=== PATIENT | male | born 1990 | race Caucasian/White ===

== ENCOUNTER 2017-07-20 15:41 | Emergency (ER) | payer SELFPAY ==
[~2017-07-20] VITALS: Ht 180.3 cm; Wt 78.0 kg
[~2017-07-20 15:41] MED LIST: VIST25CA PO
[2017-07-20 15:42] VITALS: BP 134/72; PULSE 78; RESP 14; TEMP 98.6; O2SAT 98
--- NOTE | 2017-07-20 16:53 | PD ---
HPI Chief Complaint: Pain: Acute or Chronic Time Seen by Provider: 16:26 Travel History International Travel<30 days: No Contact w/Intl Traveler<30days: No Traveled to known affect area: No History of Present Illness HPI Patient is a 27-year-old male who comes in complaining of itching and swelling around both eyes and tightness around his mouth. He says this is been going on for 4 months. He says he has occasional discharge from his eyes. He says he wants to know what is causing his symptoms. He provides very little other history. Severity is mild. PFSH Past Medical History Anxiety: Yes (Panic attacks) Diminished Hearing: No Psychiatric: Yes (PSA) Social History Alcohol Use: Yes (DAILY) Tobacco Use: Yes (1/2 PPD) Substance Use: Yes (AMPHETAMINES, MARIJUANA) Allergies-Medications (Allergen,Severity, Reaction): Coded Allergies: No Known Allergies (Verified Adverse Reaction, Unknown, 07/20/17) Reported Meds & Prescriptions Reported Meds & Active Scripts Active Vistaril (Hydroxyzine Pamoate) 25 Mg Cap 25 Mg PO Q12HR PRN FOR ITCHING Review of Systems General / Constitutional: No: Fever, Chills Eyes: No: Blurred Vision HENT: No: Headaches, Lightheadedness Cardiovascular: No: Chest Pain or Discomfort Gastrointestinal: No: Nausea, Vomiting Musculoskeletal: No: Myalgias Skin: Positive Itching, No Rash Neurologic: No: Weakness, Dizziness Physical Exam Narrative GENERAL: Awake and alert, no acute distress. SKIN: Focused skin assessment warm/dry. No wounds, no signs of infection. Face is sunburned. HEAD: Atraumatic. Normocephalic. EYES: Pupils equal and round. No scleral icterus. No injection or drainage. Extraocular movements intact. ENT: Mucous membranes pink and moist. CARDIOVASCULAR: Regular rate and rhythm. No murmur appreciated. RESPIRATORY: No accessory muscle use. Clear to auscultation. Breath sounds equal bilaterally. MUSCULOSKELETAL: No obvious deformities. No clubbing. No cyanosis. No edema. NEUROLOGICAL: Awake and alert. No obvious cranial nerve deficits. Motor grossly within normal limits. Normal speech. PSYCHIATRIC: Appropriate mood and affect; insight and judgment normal. Data Data Last Documented VS Vital Signs Date Time Temp Pulse Resp B/P (MAP) Pulse Ox O2 Delivery O2 Flow Rate FiO2 07/20/17 15:42 98.6 78 14 134/72 (55) 98 MDM Medical Decision Making Medical Screen Exam Complete: Yes Emergency Medical Condition: Yes Medical Record Reviewed: Yes Differential Diagnosis Allergic reaction versus sunburn versus cellulitis versus conjunctivitis Narrative Course Patient is a 27-year-old male who comes in complaining of red itchy eyes and tightness around his mouth. Exam shows sunburn on his face, no other acute abnormalities. I discussed with the patient that I believe his symptoms are likely due to environmental allergies and a sunburn he has. Patient became argumentative and said "you think a white sourer with think that." When asked what he feels that he needs, he could not answer that. I offered him Benadryl. He said originally that he had not taken anything for symptoms, but then said that he had been taking Benadryl. He is offered a prescription for eyedrops, but then decides that he has already been taking eyedrops though he cannot name these eyedrops. Again, I asked what he was seeking by coming to the emergency department and he could not answer. He then started to tell me about symptoms he had supposedly had for 5 years. I advised he should follow-up with a primary care doctor. Patient offered a Benadryl here, however he got up and walked out. Diagnosis Primary Impression: Seasonal allergies Qualified Codes: J30.2 - Other seasonal allergic rhinitis Disposition: 07 AGAINST MEDICAL ADVICE Collette Alarcon MD Jul 20, 2017 16:53
== END 2017-07-20 17:21 | disposition left against medical advice (07) ==
LOC: NEPD 15:41
DX: J30.2 Other seasonal allergic rhinitis (principal); F17.200 Nicotine dependence, unspecified, uncomplicated; Z86.59 Personal history of other mental and behavioral disorders; Z53.29 Procedure and treatment not carried out because of patient's decision for other reasons
CPT/HCPCS: 99281

== ENCOUNTER 2017-08-06 22:15 | Emergency (ER) | payer SELFPAY ==
[~2017-08-06] VITALS: Ht 180.3 cm; Wt 80.0 kg
[2017-08-06 22:25] VITALS: BP 143/96; PULSE 84; RESP 15; TEMP 98.3; O2SAT 98
[2017-08-06] MEDS ORDERED: SODIUM CHLORIDE 0.9% FLUSH 10 ML FLUSH IVF PRN (22:45)
[2017-08-06] MEDS ORDERED: SODIUM CHLOR 0.9% 1000 ML INJ 1,000 ML IV ONE ×2 (22:45→23:00)
--- NOTE | 2017-08-06 22:58 | RADRPT ---
EXAM DATE/TIME: 08/06/2017 22:44 [facility] COMPARISON: CHEST SINGLE AP, July 06, 2015, 2:50. INDICATIONS : Psych eval, short of breath. MEDICAL HISTORY : None. SURGICAL HISTORY : None. ENCOUNTER: Initial ACUITY: 1 day PAIN SCORE: 0/10 LOCATION: Bilateral chest FINDINGS: A single view of the chest demonstrates the lungs to be symmetrically aerated without evidence of mas s, infiltrate or effusion. The cardiomediastinal contours are unremarkable. Osseous structures are intact. The left costophrenic angle was excluded from the image. CONCLUSION: No acute disease. Adria Read MD on August 06, 2017 at 22:56 Board Certified Radiologist. This report was verified electronically.
[2017-08-06] MEDS ORDERED: THIAMINE INJ 100 MG in SODIUM CHLORIDE 0.9% INJ 100 ML IV ONE (23:00)
[2017-08-06 23:21] LABS: AUTOMATED NEUTROPHIL # 4.2 TH/MM3 (1.8-7.7); BASOPHIL # 0.2 TH/MM3 (0-0.2); BASOPHIL % 2.2 % (0.0-2.0); EOSINOPHIL # 0.4 TH/MM3 (0-0.4); EOSINOPHIL % 4.7 % (0.0-4.0); HEMATOCRIT 49.9 % (39.0-51.0); HEMOGLOBIN 17.2 GM/DL (13.0-17.0); LYMPH % 33.1 % (9.0-44.0); LYMPHOCYTE # 2.7 TH/MM3 (1.0-4.8); MEAN CELL VOLUME 91.7 FL (80.0-100.0); MEAN CORPUSCULAR HEMOGLOBIN 31.5 PG (27.0-34.0); MEAN CORPUSCULAR HGB CONC 34.4 % (32.0-36.0); MEAN PLATELET VOLUME 8.1 FL (7.0-11.0); MONO % 8.7 % (0.0-8.0); MONOCYTE # 0.7 TH/MM3 (0-0.9); NEUT % 51.3 % (16.0-70.0); PLATELET COUNT 333 TH/MM3 (150-450); RED BLOOD COUNT 5.44 MIL/MM3 (4.50-5.90); RED CELL DISTRIBUTION WIDTH 14.2 % (11.6-17.2); WHITE BLOOD COUNT 8.2 TH/MM3 (4.0-11.0)
[2017-08-06 23:27] LABS: ALKALINE PHOSPHATASE 112 U/L (45-117); ALT (GPT) 65 U/L (12-78); AST (GOT) 76 U/L (15-37); BICARBONATE 27.7 MEQ/L (21.0-32.0); BLOOD UREA NITROGEN 7 MG/DL (7-18); CALCIUM 8.5 MG/DL (8.5-10.1); CHLORIDE 106 MEQ/L (98-107); CREATININE 1.01 MG/DL (0.60-1.30); GLOMERULAR FILTRATION RATE 90 ML/MIN (>89); GLUCOSE,RANDOM 97 MG/DL (74-106); MAGNESIUM 2.2 MG/DL (1.5-2.5); SODIUM (NA) 145 MEQ/L (136-145); TOTAL BILIRUBIN ADULT 0.9 MG/DL (0.2-1.0); TOTAL PROTEIN 7.8 GM/DL (6.4-8.2); TROPONIN I LESS THAN 0.02 NG/ML (0.02-0.05)
--- NOTE | 2017-08-06 23:29 | PD ---
HPI Chief Complaint: Chest Pain Time Seen by Provider: 22:33 Travel History International Travel<30 days: No Contact w/Intl Traveler<30days: No Traveled to known affect area: No History of Present Illness HPI Patient 27-year-old male presents emergency department confused, apparently called 911 because he was having chest pain and seizures, patient states he just been shaky all over and jittery, he endorses crack cocaine use to nursing today he tells me he did not use any today. He is significantly altered, he removed his IV from EMS he also removed in IV from my staff. Appears significantly dehydrated, he is uncooperative and belligerent. He cannot really provide me a past medical history, he is oriented to self and place only. [facility] Past Medical History Anxiety: Yes (Panic attacks) Diminished Hearing: No Psychiatric: Yes (PSA) Past Surgical History Surgical History: No Previous Surgery Social History Alcohol Use: Yes (DAILY) Tobacco Use: Yes (1/2 PPD) Substance Use: Yes (AMPHETAMINES, MARIJUANA) Allergies-Medications (Allergen,Severity, Reaction): Coded Allergies: No Known Allergies (Verified Adverse Reaction, Unknown, 08/06/17) Reported Meds & Prescriptions Reported Meds & Active Scripts Active Vistaril (Hydroxyzine Pamoate) 25 Mg Cap 25 Mg PO Q12HR PRN FOR ITCHING Review of Systems ROS Limitations: Altered Mental Status Physical Exam Narrative GENERAL: Well-developed well-nourished, smells heavily of alcohol, appears older than stated age peer SKIN: Focused skin assessment warm/dry. Hot dry and flushed, sunburnt. HEAD: Atraumatic. Normocephalic. EYES: Pupils equal and round. No scleral icterus. No injection or drainage. ENT: No nasal bleeding or discharge. Mucous membranes pink and moist. NECK: Trachea midline. No JVD. CARDIOVASCULAR: Regular rate and rhythm no murmurs gallops or rubs.. No murmur appreciated. RESPIRATORY: No accessory muscle use. Clear to auscultation. Breath sounds equal bilaterally. GASTROINTESTINAL: Abdomen soft, non-tender, nondistended. Hepatic and splenic margins not palpable. MUSCULOSKELETAL: No obvious deformities. No clubbing. No cyanosis. No edema. NEUROLOGICAL: Awake and alert. No obvious cranial nerve deficits. Motor grossly within normal limits. Normal speech. PSYCHIATRIC: Belligerent, altered mental status, later in the encounter began throwing things around in his room. Data Data Last Documented VS Vital Signs Date Time Temp Pulse Resp B/P (MAP) Pulse Ox O2 Delivery O2 Flow Rate FiO2 08/07/17 04:00 72 17 100 Room Air 08/06/17 22:25 98.3 143/96 (112) Orders Orders Electrocardiogram (08/06/17 22:33) Ckmb (Isoenzyme) Profile (08/06/17 22:33) Complete Blood Count With Diff (08/06/17 22:33) Comprehensive Metabolic Panel (08/06/17 22:33) Magnesium (Mg) (08/06/17 22:33) Troponin I (08/06/17 22:33) Chest, Single Ap (08/06/17 22:33) Ecg Monitoring (08/06/17 22:33) Iv Access Insert/Monitor (08/06/17 22:33) Oximetry (08/06/17 22:33) Oxygen Administration (08/06/17 22:33) Sodium Chloride 0.9% Flush (Ns Flush) (08/06/17 22:45) Sodium Chlor 0.9% 1000 Ml Inj (Ns 1000 M (08/06/17 22:45) Sodium Chlor 0.9% 1000 Ml Inj (Ns 1000 M (08/06/17 23:00) Thiamine Inj (Thiamine Inj) (08/06/17 23:00) CKMB (08/06/17 22:30) CKMB% (08/06/17 22:30) Lorazepam Inj (Ativan Inj) (08/06/17 23:45) Haloperidol Inj (Haldol Inj) (08/06/17 23:45) Diphenhydramine Inj (Benadryl Inj) (08/06/17 23:45) Restraints Violent (08/06/17 23:44) Drug Screen, Random Urine (08/06/17 23:57) Ct Brain W/O Iv Contrast(Rout) (08/07/17 ) Ct Cerv Spine W/O Contrast (08/07/17 ) Alcohol (Ethanol) (08/06/17 22:30) Labs Laboratory Tests Test 08/06/17 22:30 08/06/17 22:45 Blood Urea Nitrogen 7 MG/DL Creatinine 1.01 MG/DL Random Glucose 97 MG/DL Total Protein 7.8 GM/DL Albumin 4.0 GM/DL Calcium Level 8.5 MG/DL Magnesium Level 2.2 MG/DL Alkaline Phosphatase 112 U/L Aspartate Amino Transf (AST/SGOT) 76 U/L Alanine Aminotransferase (ALT/SGPT) 65 U/L Total Bilirubin 0.9 MG/DL Sodium Level 145 MEQ/L Potassium Level 3.8 MEQ/L Chloride Level 106 MEQ/L Carbon Dioxide Level 27.7 MEQ/L Anion Gap 11 MEQ/L Estimat Glomerular Filtration Rate 90 ML/MIN Total Creatine Kinase 593 U/L Creatine Kinase MB 4.8 NG/ML Creatine Kinase MB % 0.8 % Troponin I LESS THAN 0.02 NG/ML Ethyl Alcohol Level 284 MG/DL White Blood Count 8.2 TH/MM3 Red Blood Count 5.44 MIL/MM3 Hemoglobin 17.2 GM/DL Hematocrit 49.9 % Mean Corpuscular Volume 91.7 FL Mean Corpuscular Hemoglobin 31.5 PG Mean Corpuscular Hemoglobin Concent 34.4 % Red Cell Distribution Width 14.2 % Platelet Count 333 TH/MM3 Mean Platelet Volume 8.1 FL Neutrophils (%) (Auto) 51.3 % Lymphocytes (%) (Auto) 33.1 % Monocytes (%) (Auto) 8.7 % Eosinophils (%) (Auto) 4.7 % Basophils (%) (Auto) 2.2 % Neutrophils # (Auto) 4.2 TH/MM3 Lymphocytes # (Auto) 2.7 TH/MM3 Monocytes # (Auto) 0.7 TH/MM3 Eosinophils # (Auto) 0.4 TH/MM3 Basophils # (Auto) 0.2 TH/MM3 CBC Comment DIFF FINAL Differential Comment MDM Medical Decision Making Medical Screen Exam Complete: Yes Emergency Medical Condition: Yes Differential Diagnosis Alcohol intoxication, dehydration, rhabdomyolysis, substance abuse peer Narrative Course Patient room to the emergency department, given his cocaine use and his sun exposure as well as his altered mental status I have concerns for heatstroke versus heat syncope versus rhabdomyolysis and dehydration. The patient confused , he attempted to ambulate from the ER, when I discussed differential with him he is not able to participate with his decision-making process at this time, he is therefore too intoxicated to leave of his own accord. I placed him under [employer] act, he was escorted back to his room initially cooperative he was able to take p.o. however he then began throwing his urinal around the room his trash can overturned his bedside table. He had been warned by several staff members not to do these things and continued to act out and be disruptive, for that reason he was placed in four-point restraints and chemically sedated. He does have a small abrasion to the inner aspect of his lip which apparently occurred while he was being restrained. I lost sight of him for a moment while the curtain was drawn and cannot attest directly to the mechanism of injury. I have added a CT of his head and C-spine on. He has orders for 2 L normal saline , thiamine. His basic labs are actually reassuring. He is not febrile. Awaiting the CT head and C-spine alcohol level and urine drug screen. There will be allowed to sleep it off in the emergency department. Diagnosis Primary Impression: Alcohol intoxication Qualified Codes: F10.921 - Alcohol use, unspecified with intoxication delirium Additional Impressions: Dehydration Delirium Condition: Stable Bao Calvin MD August 06, 2017 23:29
[2017-08-06] MEDS ORDERED: HALOPERIDOL LACTATE 5 MG/ML AMP IM ONE (23:45)
[2017-08-06] MEDS ORDERED: diphenhydrAMINE HCL 50 MG/ML VIAL IV PUSH ONE (23:45)
[2017-08-06] MEDS ORDERED: LORazepam 2 MG/ML VIAL IV PUSH ONE (23:45)
[2017-08-07 04:00] VITALS: PULSE 72; RESP 17; O2SAT 100
--- NOTE | 2017-08-07 04:17 | RADRPT ---
EXAM DATE/TIME: 08/07/2017 03:41 [facility] COMPARISON: No previous studies available for comparison. INDICATIONS : Altered mental status. RADIATION DOSE: 56.35 CTDIvol (mGy) MEDICAL HISTORY : Non-responsive. SURGICAL HISTORY : Non-responsive. ENCOUNTER: Initial ACUITY: 1 day PAIN SCALE: Non-responsive LOCATION: cranial TECHNIQUE: Multiple contiguous axial images were obtained of the head. Using automated exposure control and adj ustment of the mA and/or kV according to patient size, radiation dose was kept as low as reasonably a chievable to obtain optimal diagnostic quality images. DICOM format image data is available electro nically for review and comparison. FINDINGS: CEREBRUM: The ventricles are normal for age. No evidence of midline shift, mass lesion, hemorrhage or acute in farction. No extra-axial fluid collections are seen. POSTERIOR FOSSA: The cerebellum and brainstem are intact. The 4th ventricle is midline. The cerebellopontine angle i s unremarkable. EXTRACRANIAL: The visualized portion of the orbits is intact. SKULL: The calvaria is intact. No evidence of skull fracture. CONCLUSION: Normal examination. Eran Funk MD on August 07, 2017 at 4:16 Board Certified Radiologist. This report was verified electronically.
--- NOTE | 2017-08-07 04:18 | RADRPT ---
EXAM DATE/TIME: 08/07/2017 03:41 [facility] COMPARISON: No previous studies available for comparison. INDICATIONS : Altered mental status. RADIATION DOSE: 18.46 CTDIvol (mGy) MEDICAL HISTORY : Non-responsive. SURGICAL HISTORY : Non-responsive. ENCOUNTER: Initial ACUITY: 1 day PAIN SCALE: Non-responsive LOCATION: neck TECHNIQUE: Volumetric scanning of the cervical spine was performed. Multiplanar reconstructions in the sagittal, coronal and oblique axial planes were performed. Using automated exposure control and adjustment o f the mA and/or kV according to patient size, radiation dose was kept as low as reasonably achievable to obtain optimal diagnostic quality images. DICOM format image data is available electronically f or review and comparison. FINDINGS: VERTEBRAE: Normal vertebral body height. ALIGNMENT: No evidence of subluxation. C2-C3: The bony spinal canal is normal in size. No evidence of disc bulge or herniation. The neural forami na are bilaterally patent. C3-C4: The bony spinal canal is normal in size. No evidence of disc bulge or herniation. The neural forami na are bilaterally patent. C4-C5: The bony spinal canal is normal in size. No evidence of disc bulge or herniation. The neural forami na are bilaterally patent. C5-C6: The bony spinal canal is normal in size. No evidence of disc bulge or herniation. The neural forami na are bilaterally patent. C6-C7: The bony spinal canal is normal in size. No evidence of disc bulge or herniation. The neural forami na are bilaterally patent. C7-T1: The bony spinal canal is normal in size. No evidence of disc bulge or herniation. The neural forami na are bilaterally patent. CONCLUSION: Normal examination. Eran Funk MD on August 07, 2017 at 4:17 Board Certified Radiologist. This report was verified electronically.
--- NOTE | 2017-08-07 09:12 | EKG ---
Date Performed: 08/07/2017 Time Performed: 04:46:23 PTAGE: 27 years EKG: Sinus rhythm WITH SINUS ARRHYTHMIA POSSIBLE RIGHT VENTRICULAR CONDUCTION DELAY LEFT ANTERIOR FASCICULAR BLOCK ABN ORMAL ECG PREVIOUS TRACING : 07/06/2015 02.03 DOCTOR: Eran Gray Interpretating Date/Time 08/07/2017 09:10:11
--- NOTE | 2017-08-07 10:02 | PD ---
Physical Exam Time Seen by Provider: 09:[address] Calvin's note for initial H&P. Data Data Last Documented VS Vital Signs Date Time Temp Pulse Resp B/P (MAP) Pulse Ox O2 Delivery O2 Flow Rate FiO2 08/07/17 04:00 72 17 100 Room Air 08/06/17 22:25 98.3 143/96 (112) Orders Orders Electrocardiogram (08/06/17 22:33) Ckmb (Isoenzyme) Profile (08/06/17 22:33) Complete Blood Count With Diff (08/06/17 22:33) Comprehensive Metabolic Panel (08/06/17 22:33) Magnesium (Mg) (08/06/17 22:33) Troponin I (08/06/17 22:33) Chest, Single Ap (08/06/17 22:33) Ecg Monitoring (08/06/17 22:33) Iv Access Insert/Monitor (08/06/17 22:33) Oximetry (08/06/17 22:33) Oxygen Administration (08/06/17 22:33) Sodium Chloride 0.9% Flush (Ns Flush) (08/06/17 22:45) Sodium Chlor 0.9% 1000 Ml Inj (Ns 1000 M (08/06/17 22:45) Sodium Chlor 0.9% 1000 Ml Inj (Ns 1000 M (08/06/17 23:00) Thiamine Inj (Thiamine Inj) (08/06/17 23:00) CKMB (08/06/17 22:30) CKMB% (08/06/17 22:30) Lorazepam Inj (Ativan Inj) (08/06/17 23:45) Haloperidol Inj (Haldol Inj) (08/06/17 23:45) Diphenhydramine Inj (Benadryl Inj) (08/06/17 23:45) Restraints Violent (08/06/17 23:44) Drug Screen, Random Urine (08/06/17 23:57) Ct Brain W/O Iv Contrast(Rout) (08/07/17 ) Ct Cerv Spine W/O Contrast (08/07/17 ) Alcohol (Ethanol) (08/06/17 22:30) Labs Laboratory Tests Test 08/06/17 22:30 08/06/17 22:45 Blood Urea Nitrogen 7 MG/DL Creatinine 1.01 MG/DL Random Glucose 97 MG/DL Total Protein 7.8 GM/DL Albumin 4.0 GM/DL Calcium Level 8.5 MG/DL Magnesium Level 2.2 MG/DL Alkaline Phosphatase 112 U/L Aspartate Amino Transf (AST/SGOT) 76 U/L Alanine Aminotransferase (ALT/SGPT) 65 U/L Total Bilirubin 0.9 MG/DL Sodium Level 145 MEQ/L Potassium Level 3.8 MEQ/L Chloride Level 106 MEQ/L Carbon Dioxide Level 27.7 MEQ/L Anion Gap 11 MEQ/L Estimat Glomerular Filtration Rate 90 ML/MIN Total Creatine Kinase 593 U/L Creatine Kinase MB 4.8 NG/ML Creatine Kinase MB % 0.8 % Troponin I LESS THAN 0.02 NG/ML Ethyl Alcohol Level 284 MG/DL White Blood Count 8.2 TH/MM3 Red Blood Count 5.44 MIL/MM3 Hemoglobin 17.2 GM/DL Hematocrit 49.9 % Mean Corpuscular Volume 91.7 FL Mean Corpuscular Hemoglobin 31.5 PG Mean Corpuscular Hemoglobin Concent 34.4 % Red Cell Distribution Width 14.2 % Platelet Count 333 TH/MM3 Mean Platelet Volume 8.1 FL Neutrophils (%) (Auto) 51.3 % Lymphocytes (%) (Auto) 33.1 % Monocytes (%) (Auto) 8.7 % Eosinophils (%) (Auto) 4.7 % Basophils (%) (Auto) 2.2 % Neutrophils # (Auto) 4.2 TH/MM3 Lymphocytes # (Auto) 2.7 TH/MM3 Monocytes # (Auto) 0.7 TH/MM3 Eosinophils # (Auto) 0.4 TH/MM3 Basophils # (Auto) 0.2 TH/MM3 CBC Comment DIFF FINAL Differential Comment [facility] Supervised Visit with KSENIA: No Narrative Course See Dr. Calvin's note for initial H&P. Dr. Calvin had placed the patient under [employer] act because he was heavily intoxicated with alcohol and appeared dehydrated, confused, and was pulling out his IVs. He was not comprehending his physical condition and he was trying to leave. He was medically cleared by Dr. Calvin and was being allowed time to sleep and sober up. Patient is awake and alert at this time. He has no medical complaints at this time. He denies chest pain, shortness of breath. Denies suicidal or homicidal ideations. He is ambulatory in the room without complication. Patient has been here substantial amount of time and given time to sober up. Patient is clinically sober at this time and cleared for discharge. Instructed patient to follow up with primary care provider. Patient verbalizes understanding and agreement with treatment plan. Patient is medically cleared and stable for discharge. Discussed reasons to return to the emergency department. Patient agrees with treatment plan. The patients vital signs are stable and the patient is stable for outpatient follow-up and treatment. Patient discharged home, stable and in no acute distress. Diagnosis Primary Impression: Alcohol intoxication Qualified Codes: F10.921 - Alcohol use, unspecified with intoxication delirium Additional Impressions: Delirium Dehydration Referrals: [facility] (Out patient) [facility] Primary Care Physician [facility] Patient Instructions: General Instructions, Dehydration (ED), Alcohol Intoxication (ED), Acute Delirium (ED) Departure Forms: Tests/Procedures Additional Instruction: Contract safety to your self and others Follow-up in the community for community support, such as with Alcoholics Anonymous and/or Narcotics anonymous Drink alcohol in moderation, or stop drinking alcohol completely Stop using drugs Follow-up with primary care provider Follow-up with Kalpesh Young Return to the emergency department immediately with worsening of symptoms Med/Other Pt SpecificInfo: No Change to Meds, No Meds Exist/No RX given Disposition: 01 DISCHARGE HOME Condition: Stable Yarelis Ackerman August 07, 2017 10:02
[2017-08-07 10:08] VITALS: BP 125/77; PULSE 95; RESP 16; O2SAT 100
== END 2017-08-07 10:10 | disposition home or self-care (01) ==
LOC: NEPC 22:15 → NEPD 08-07 10:10
DX: F10.921 Alcohol use, unspecified with intoxication delirium (principal); E86.0 Dehydration; F17.200 Nicotine dependence, unspecified, uncomplicated; Y90.8 Blood alcohol level of 240 mg/100 ml or more; Z79.899 Other long term (current) drug therapy
CPT/HCPCS: 70450; 71045; 72125; 80053; 80307; 82550; 82552; 83735; 84484; 85025; 93005; 96365; 96366; 96372; 96375; 99285; J1200; J1630; J2060; J3411; J7030

== ENCOUNTER 2017-08-21 07:03 | Emergency (ER) | payer SELFPAY ==
[~2017-08-21] VITALS: Ht 180.3 cm; Wt 77.0 kg
[2017-08-21 07:07] VITALS: BP 151/65; PULSE 87; RESP 16; TEMP 98.2; O2SAT 99
--- NOTE | 2017-08-21 07:22 | PD ---
HPI Chief Complaint: Skin Problem Time Seen by Provider: 07:14 Travel History International Travel<30 days: No Contact w/Intl Traveler<30days: No Traveled to known affect area: No History of Present Illness HPI Patient is a 27-year-old male who presents the emergency room for evaluation of possible chlamydia. Patient reports that he has had urethral discharge and is sexually active and did not use protection. Patient also reports dysuria, denies urinary urgency or frequency. Patient requests to be tested and treated for possible STDs. Patient with no fever chills, no abdominal pain. PFSH Past Medical History Anxiety: Yes (Panic attacks) Diminished Hearing: No Psychiatric: Yes (PSA) Tetanus Vaccination: < 5 Years Past Surgical History Surgical History: No Previous Surgery Social History Alcohol Use: Yes (DAILY) Tobacco Use: Yes (1/2 PPD) Substance Use: Yes (AMPHETAMINES, MARIJUANA) Allergies-Medications (Allergen,Severity, Reaction): Coded Allergies: No Known Allergies (Verified Adverse Reaction, Unknown, 08/21/17) Reported Meds & Prescriptions Reported Meds & Active Scripts Active No Active Prescriptions or Reported Medications Review of Systems General / Constitutional: No: Fever Eyes: No: Visual changes HENT: No: Headaches Cardiovascular: No: Chest Pain or Discomfort Respiratory: No: Shortness of Breath Gastrointestinal: No: Abdominal Pain Genitourinary: Positive: Dysuria, Other (Penile discharge), No: Urgency, Frequency Musculoskeletal: No: Pain Skin: No Rash Neurologic: No: Weakness Psychiatric: No: Depression Endocrine: No: Polydipsia Hematologic/Lymphatic: No: Easy Bruising Physical Exam Narrative GENERAL: Well-nourished, well-developed patient. SKIN: Focused skin assessment warm/dry. HEAD: Normocephalic. EYES: No scleral icterus. No injection or drainage. NECK: Supple, trachea midline. No JVD or lymphadenopathy. CARDIOVASCULAR: Regular rate and rhythm without murmurs, gallops, or rubs. RESPIRATORY: Breath sounds equal bilaterally. No accessory muscle use. GASTROINTESTINAL: Abdomen soft, non-tender, nondistended. MUSCULOSKELETAL: No cyanosis, or edema. BACK: Nontender without obvious deformity. No CVA tenderness. Data Data Last Documented VS Vital Signs Date Time Temp Pulse Resp B/P (MAP) Pulse Ox O2 Delivery O2 Flow Rate FiO2 08/21/17 07:07 98.2 87 16 151/65 (93) 99 Orders Orders Gc And Chlamydia Pcr (08/21/17 07:17) Urinalysis - C+S If Indicated (08/21/17 07:17) Azithromycin Powd Pack (Zithromax Powd P (08/21/17 07:30) Lidocaine 1% Inj (50 Ml) (Xylocaine 1% I (08/21/17 07:30) Ceftriaxone Inj (Rocephin Inj) (08/21/17 07:30) Lidocaine Pf 1% Inj (Xylocaine-Mpf 1% In (08/21/17 07:31) Labs Laboratory Tests Test 08/21/17 07:21 Urine Collection Type CLEAN CATCH Urine Color YELLOW Urine Turbidity CLEAR Urine pH 6.0 Urine Specific [place] 1.025 Urine Protein TRACE mg/dL Urine Glucose (UA) NEG mg/dL Urine Ketones NEG mg/dL Urine Occult Blood NEG Urine Nitrite NEG Urine Bilirubin NEG Urine Urobilinogen 0.2 MG/DL Urine Leukocyte Esterase NEG Urine Squamous Epithelial Cells 0-5 /hpf Microscopic Urinalysis Comment CULT NOT INDICATED Urine Collection Time 07:21 [facility] Medical Decision Making Medical Screen Exam Complete: Yes Emergency Medical Condition: Yes Medical Record Reviewed: Yes Interpretation(s) Vital Signs Date Time Temp Pulse Resp B/P (MAP) Pulse Ox O2 Delivery O2 Flow Rate FiO2 08/21/17 07:07 98.2 87 16 151/65 (93) 99 Differential Diagnosis Urethritis, UTI Narrative Course 27-year-old male who presents the emergency room for evaluation of possible STD. UA was sent as well as urine GC. Patient request to be treated for possible STDs as he has a high suspicion for possible chlamydia. Patient understands that he will need to follow up with cultures from today as all sexual partners will need to be treated if cultures are positive. Laboratory Tests Test 08/21/17 07:21 Urine Collection Type CLEAN CATCH Urine Color YELLOW (YELLW/STRAW) Urine Turbidity CLEAR (CLEAR) Urine pH 6.0 (5.0-8.5) Urine Specific [place] 1.025 (1.002-1.035) Urine Protein TRACE mg/dL (NEG-TRACE) Urine Glucose (UA) NEG mg/dL (NEG) Urine Ketones NEG mg/dL (NEG) Urine Occult Blood NEG (NEG) Urine Nitrite NEG (NEG) Urine Bilirubin NEG (NEG) Urine Urobilinogen 0.2 MG/DL (LESS THAN Urine Leukocyte Esterase NEG (NEG) Urine Squamous Epithelial Cells 0-5 /hpf (0-5) Microscopic Urinalysis Comment CULT NOT INDICATED Urine Collection Time 07:21 Patient will be treated for urethritis, he will follow-up with all cultures from today. Understands that if cultures are positive, all sexual partners will need to be treated. Diagnosis Primary Impression: Urethritis Patient Instructions: General Instructions Additional Instructions: Please follow-up with all cultures from today If cultures are positive, all sexual partners will need to be treated Please go to the [facility] department for full STD panel testing Return to the emergency room as needed Scripts No Active Prescriptions or Reported Meds Disposition: 01 DISCHARGE HOME Condition: Daisha Lazaro DO August 21, 2017 07:22
[2017-08-21 07:29] LABS: BILIRUBIN, URINE NEG (NEG); BLOOD, URINE NEG (NEG); GLUCOSE,URINE NEG (NEG); KETONE, URINE NEG (NEG); NITRITE,URINE NEG (NEG); URINE COLOR YELLOW (YELLW/STRAW); URINE LEUKOCYTE ESTERASE NEG (NEG)
[2017-08-21] MEDS ORDERED: AZITHROMYCIN PWD FOR SUSP 1 GM PACKET PO ONE (07:30)
[2017-08-21] MEDS ORDERED: LIDOCAINE HCL 1% 50 ML VIAL IM ONE (07:30)
[2017-08-21] MEDS ORDERED: LIDOCAINE HCL 1% PF 30 ML VIAL ONE (07:31)
[2017-08-21 07:38] LABS: SQUAMOUS EPITHELIAL CELL URINE 0-5 /hpf (0-5)
== END 2017-08-21 08:08 | disposition home or self-care (01) ==
LOC: PHED 07:03
DX: N34.2 Other urethritis (principal); R30.0 Dysuria; Z72.0 Tobacco use
CPT/HCPCS: 81001; 87491; 87591; 96372; 99283; J0696

== ENCOUNTER 2017-09-05 06:47 | Emergency (ER) | payer SELFPAY ==
[~2017-09-05] VITALS: Ht 180.3 cm; Wt 80.0 kg
[2017-09-05 07:12] VITALS: BP 168/87; PULSE 109; RESP 17; TEMP 99; O2SAT 99
[2017-09-05] MEDS ORDERED: SUBO8MIS SL (07:29)
[2017-09-05] MEDS ORDERED: GABA100C4 PO (07:29)
[2017-09-05 07:43] LABS: BILIRUBIN, URINE NEG (NEG); BLOOD, URINE MOD (NEG); GLUCOSE,URINE NEG (NEG); KETONE, URINE NEG (NEG); NITRITE,URINE NEG (NEG); URINE COLOR YELLOW (YELLW/STRAW); URINE LEUKOCYTE ESTERASE NEG (NEG)
--- NOTE | 2017-09-05 07:47 | PD ---
HPI Chief Complaint: Abdominal Pain Time Seen by Provider: 07:32 Travel History International Travel<30 days: No Contact w/Intl Traveler<30days: No Traveled to known affect area: No History of Present Illness HPI This patient complains of abdominal pain flank pain on the right side. Duration 2 days. Severity is moderate. Symptoms are intermittent. He eats without worsening of symptoms. Denies hematuria or injury or fever. No alleviating factors. No exacerbating factors. No abdominal surgeries or medical problems per his report. He denies any history of IV drug abuse [facility] Past Medical History Anxiety: Yes (Panic attacks) Depression: Yes Diminished Hearing: No Psychiatric: Yes (PSA) Past Surgical History Surgical History: No Previous Surgery Social History Alcohol Use: Yes (weekly) Tobacco Use: Yes (1/2 PPD) Substance Use: Yes (crack, MARIJUANA, heroin, "whatever I can get") Allergies-Medications (Allergen,Severity, Reaction): Coded Allergies: No Known Allergies (Verified Adverse Reaction, Unknown, 08/21/17) Reported Meds & Prescriptions Reported Meds & Active Scripts Active Reported Suboxone Sublingual Film (Buprenorphine-Naloxone Sublingual Film) 8-2 Mg Film 1 Film SL Unique ID number required: Gabapentin 100 Mg Cap 100 Mg PO TID Review of Systems General / Constitutional: No: Fever Eyes: No: Visual changes HENT: No: Headaches Cardiovascular: No: Chest Pain or Discomfort Respiratory: No: Shortness of Breath Gastrointestinal: Positive: Abdominal Pain Genitourinary: Positive: Flank Pain, No: Dysuria Musculoskeletal: No: Pain Skin: No Rash Neurologic: No: Weakness Psychiatric: No: Depression Endocrine: No: Polydipsia Hematologic/Lymphatic: No: Easy Bruising Physical Exam Narrative GENERAL: Well-nourished, well-developed patient in no apparent distress. SKIN: Focused skin assessment reveals no rash and nodules. Skin is Warm and dry. HEAD: Atraumatic. Normocephalic. EYES: Pupils equal and round. No scleral icterus. No injection or drainage. ENT: No nasal bleeding or discharge. Mucous membranes pink and moist. NECK: Trachea midline. No JVD. CARDIOVASCULAR: Regular rate and rhythm. No murmur appreciated. RESPIRATORY: No accessory muscle use. Clear to auscultation. Breath sounds equal bilaterally. GASTROINTESTINAL: Abdomen soft, non-tender, nondistended. Hepatic and splenic margins not palpable. MUSCULOSKELETAL: No obvious deformities. No clubbing. No cyanosis. No edema. NEUROLOGICAL: Awake and alert. No obvious cranial nerve deficits. Motor grossly within normal limits. Normal speech. PSYCHIATRIC: Appropriate mood and affect; insight and judgment normal. Data Data Last Documented VS Vital Signs Date Time Temp Pulse Resp B/P (MAP) Pulse Ox O2 Delivery O2 Flow Rate FiO2 09/05/17 07:12 99.0 109 17 168/87 (114) 99 Orders Orders Urinalysis - C+S If Indicated (09/05/17 07:16) Ct Abd/Pel W/O Iv Contrast (09/05/17 ) Labs Laboratory Tests Test 09/05/17 07:20 Urine Color YELLOW Urine Turbidity CLEAR Urine pH 6.0 Urine Specific [place] 1.020 Urine Protein 30 mg/dL Urine Glucose (UA) NEG mg/dL Urine Ketones NEG mg/dL Urine Occult Blood MOD Urine Nitrite NEG Urine Bilirubin NEG Urine Urobilinogen LESS THAN 2.0 MG/DL Urine Leukocyte Esterase NEG Urine WBC 1 /hpf Microscopic Urinalysis Comment CULT NOT INDICATED MDM Medical Decision Making Medical Screen Exam Complete: Yes Emergency Medical Condition: Yes Medical Record Reviewed: Yes Differential Diagnosis Kidney stone, appendicitis, colitis Narrative Course I have reviewed the patient's electronic medical record. Patient was here twice in July 2017. Last time he was here was for urethritis Urinalysis shows no infection CT abdomen and pelvis shows no emergent problem Patient's been sound asleep and resting comfortably for hours here. He stable for outpatient follow-up Diagnosis Primary Impression: Abdominal pain Qualified Codes: R10.31 - Right lower quadrant pain Additional Instructions: The patient was advised to follow up with their physician and return if they worsen. Med/Other Pt SpecificInfo: Other Disposition: 01 DISCHARGE HOME Condition: Stable Sachin Pacheco MD Sep 05, 2017 07:47
--- NOTE | 2017-09-05 09:11 | RADRPT ---
EXAM DATE: 09/05/2017 8:30 AM EDT AGE/SEX: 27 years / Male INDICATIONS: Right flank pain, burning urination. CLINICAL DATA: This is the patient's initial encounter. Patient reports that signs and symptoms have been present for 3 days and indicates a pain score of 10/10. MEDICAL/SURGICAL HISTORY: None. None. RADIATION DOSE: 5.69 CTDI (mGy) COMPARISON: No prior exams available for comparison. TECHNIQUE: Multiple contiguous axial images were obtained through the abdomen. Images were obtained using multiple row detector helical technique. Using dose reduction techniques, radiation dose was ke pt as low as reasonably achievable to obtain optimal diagnostic quality images. FINDINGS: Abdomen CT: The liver, spleen, pancreas, kidneys, adrenals are unremarkable. There is no evidence for any stones in the kidneys or the course of the ureters on either side. There is no hydronephrosis. There is no evidence for any appreciable pathological adenopathy, free fluid, or bowel obstruction. Pelvic CT: There is no evidence for mass, abscess formation, or any significant adenopathy within the pelvis. Th ere are multiple Schmorl nodes formation worse at T12-L1 and there is a limbus vertebrae at L3 toward s the anterior portion. CONCLUSION: Essentially unremarkable study except for chronic changes of the patient's lumbar spine. Electronically signed by: Zeke Chang MD 09/05/2017 9:10 AM EDT
== END 2017-09-05 11:49 | disposition home or self-care (01) ==
LOC: NEPC 06:47
DX: R10.31 Right lower quadrant pain (principal); F41.9 Anxiety disorder, unspecified; F32.9 Major depressive disorder, single episode, unspecified; F17.200 Nicotine dependence, unspecified, uncomplicated; F14.90 Cocaine use, unspecified, uncomplicated; F12.90 Cannabis use, unspecified, uncomplicated; F11.90 Opioid use, unspecified, uncomplicated
CPT/HCPCS: 74176; 81001

== ENCOUNTER 2017-09-07 05:55 | Emergency (ER) | payer SELFPAY ==
[~2017-09-07 05:55] MED LIST changes: +GABA100C4 PO; +SUBO8MIS SL; -VIST25CA PO
== END 2017-09-07 06:19 | disposition left against medical advice (07) ==
LOC: PHED 05:55
DX: T50.901A Poisoning by unspecified drugs, medicaments and biological substances, accidental (unintentional), initial encounter (principal); Z53.21 Procedure and treatment not carried out due to patient leaving prior to being seen by health care provider
CPT/HCPCS: 99281